=== PATIENT | female | born 1960 | race Caucasian/White ===

== ENCOUNTER 2016-10-19 02:57 | Emergency (ER) | payer OTHER ==
[~2016-10-19] VITALS: Ht 162.6 cm; Wt 89.8 kg
[~2016-10-19 02:57] MED LIST: AMBIEN5 M1 PO; CARAFATE1 G1 PO; PRILOSEC OTC20 M1 PO; PRILOSEC20 M1 PO
--- NOTE | 2016-10-19 03:06 | ED GENERAL ADULT ---
History of Present Illness General Chief Complaint: General Adult Stated Complaint: " I THINK I HAVE THE FLU,I KNOW MY BODY" PER PT Source: patient, old records Exam Limitations: no limitations Vital Signs & Intake/Output Vital Signs & Intake/Output Vital Signs Date Time Temp Pulse Resp B/P B/P Pulse O2 O2 Flow FiO2 Mean Ox Delivery Rate 10/192 96.8 88 18 184/72 98 Room Air 10/19 0434 98.2 10/19 0429 98.2 10/19 0315 96 Room Air 10/19 0302 100.2 116 20 193/111 96 Room Air Allergies Coded Allergies: erythromycin base (Severe, TONGUE SWELLING 09/21/15) Reconcile Medications Omeprazole (Prilosec) 20 MG CAPSULE.DR 1 CAP PO DAILY GASTRITIS Omeprazole Magnesium (Prilosec Otc) 20 MG TABLET.DR 1 TAB PO DAILY gastritis Ondansetron (Zofran Odt) 4 MG TAB.RAPDIS 1 TAB SL TID PRN NAUSEA P-Ephed HCl/Hydrocodone (Rezira Solution) 60 MG-5 MG/5 ML SOLUTION 5 ML PO Q6P PRN COUGH Sucralfate (Carafate) 1 GM TABLET 1 TAB PO 4 TIMES/DAY GASTRITIS Zolpidem Tartrate (Ambien) 5 MG TABLET 1 TAB PO QPMP PRN insomnia five tabs...[id number] Triage Nurses Notes Reviewed? yes HPI: Patient presents with fevers chills myalgias and nausea and vomiting since yesterday. Patient states she is unable to keep anything down. There is no diarrhea. There is no abdominal pain however she does have diffuse myalgias. There is no radiation of the myalgias. The myalgias are constant. There are no aggravating or mitigating factors. She rates the myalgias at 6 out of 10. Past History Medical History Any Pertinent Medical History? 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 No Review of Systems Review of Systems Constitutional: Reports: see HPI, chills, fever. EENTM: Reports: no symptoms. Respiratory: Reports: no symptoms. Cardiovascular: Reports: no symptoms. GI: Reports: see HPI, nausea, vomiting. Genitourinary: Reports: no symptoms. Musculoskeletal: Reports: see HPI, muscle pain. Skin: Reports: no symptoms. Neurological/Psychological: Reports: no symptoms. Hematologic/Endocrine: Reports: no symptoms. Immunologic/Allergic: Reports: no symptoms. All Other Systems: Reviewed and Negative Physical Exam Physical Exam General Appearance: well developed/nourished, alert, awake, anxious, moderate distress Head: atraumatic, normal appearance Eyes: Bilateral: PERRL, EOMI. Ears, Nose, Throat: normal pharynx, DRY MUCOSA Neck: normal inspection, supple, full range of motion Respiratory: normal breath sounds, chest non-tender, no respiratory distress, lungs clear Cardiovascular: regular rate/rhythm, normal peripheral pulses Gastrointestinal: normal bowel sounds, soft, non-tender, no organomegaly Back: normal inspection Extremities: normal inspection, normal capillary refill, normal range of motion, no edema Neurologic/Psych: no motor/sensory deficits, awake, alert, oriented x 3, normal gait, normal mood/affect Skin: intact, normal color, warm/dry Lymphatic: no anterior cervical echo Core Measures ACS in differential dx? No CVA/TIA Diagnosis: No Severe Sepsis Present: No Septic Shock Present: No Progress Differential Diagnoses I considered the following diagnoses in my evaluation of the patient: [VIRAL SYNDROME, UTI, ELECTROLYTE ABNORMALITY] Plan of Care: Orders Procedure Date/time Status URINALYSIS 10/19 030 Active LIPASE 10/19 030 Complete COMPREHENSIVE METABOLIC PANEL 10/19 030 Complete CBC WITHOUT DIFFERENTIAL 10/19 030 Complete AMYLASE 10/19 030 Complete Current Medications Sig/Rodrigo Start time Last Medication Dose Stop Time Status Admin Acetaminophen 1,000 MG ONCE ONE 10/19 314 UNVr 10/19 (Ofirmev) 10/19 032 0310 N/A 1 UNIT (No Carrier) Ondansetron HCl 4 MG ONCE ONE 10/19 314 UNVr 10/19 (Zofran) 10/19 0316 0310 Sodium Chloride 1,000 ML BOLUS ONE 10/19 314 UNVr 10/19 (Normal Saline 0.9%) 05/31 0414 0323 Sodium Chloride 1,000 ML BOLUS ONE 10/19 314 UNVr 10/19 (Normal Saline 0.9%) 10/19 Laboratory Tests 10/19/16309: Anion Gap 11, Estimated GFR > 60, BUN/Creatinine Ratio 16.7, Glucose 125 H, Calcium 8.8, Total Bilirubin 0.6, AST 23, ALT 36, Alkaline Phosphatase 84, Total Protein 7.0, Albumin 4.1, Globulin 2.9, Albumin/Globulin Ratio 1.4, Amylase 56, Lipase 73, CBC w Diff NO MAN DIFF REQ, RBC 5.20, MCV 82.4, MCH 27.0, RDW 14.1, MPV 7.9, Gran % 90.9 H, Lymphocytes % 6.1 L, Monocytes % 2.8, Eosinophils % 0.2, Basophils % 0 L, Absolute Granulocytes 12.5 H, Absolute Lymphocytes 0.8 L, Absolute Monocytes 0.4, Absolute Eosinophils 0, Absolute Basophils 0, PUBS MCHC 32.7 L Initial ED EKG: none Comments: Patient is feeling much better. Patient wishes to go home. Patient is asking for cough syrup with hydrocodone. Patient is now having a nonproductive cough and sinus congestion. There is no sinus headache. There is no tenderness over the sinuses. Her lungs are clear to auscultation bilaterally. Departure Departure Disposition: HOME OR SELF CARE Condition: Stable Clinical Impression Primary Impression: Viral syndrome Referrals: RAYMUNDO LUIS APRN (PCP/Family) Additional Instructions: drink plenty of fluids return for any concerns Departure Forms: Customer Survey General Discharge Information Prescriptions: Current Visit Scripts Ondansetron (Zofran Odt) 1 TAB SL TID PRN NAUSEA #10 TAB P-Ephed HCl/Hydrocodone (Rezira Solution) 5 ML PO Q6P PRN COUGH #240 ML Critical Care Note Critical Care Note Critical Care Time: non-applicable
[2016-10-19 03:18] LABS: ABSOLUTE BASOPHIL COUNT 0 /CUMM (0.0-0.2); ABSOLUTE EOSINOPHIL COUNT 0 /CUMM (0.0-0.7); ABSOLUTE GRANULOCYTE CT 12.5 /CUMM (1.4-6.5); ABSOLUTE LYMPH COUNT 0.8 /CUMM (1.2-3.4); ABSOLUTE MONOCYTE COUNT 0.4 /CUMM (0.10-0.60); BASOPHIL % 0 % (0.0-2.0); EOSINOPHIL % 0.2 % (0-5); GRANULOCYTE % 90.9 % (42.2-75.2); HEMATOCRIT 42.9 % (37-47); MEAN CORPUSCULAR HGB CONC 32.7 G/DL (33.0-37.0); MEAN CORPUSCULAR VOLUME 82.4 FL (81.0-99.0); MEAN PLATELET VOLUME 7.9 FL (7.4-10.4); PLATELET COUNT 288 /CUMM (130-400); RBC DISTRIBUTION WIDTH 14.1 % (11.5-14.5); WHITE BLOOD CELL COUNT 13.8 /CUMM (4.8-10.8)
[2016-10-19] MEDS ORDERED: ZOFRAN ODT4 M1 SL (04:41)
[2016-10-19] MEDS ORDERED: [UNRECOGNIZED DRUG - OTHER] PO (04:41)
[2016-10-19 04:42] VITALS: BP 184/72
[2016-10-19] MEDS ORDERED: HYCOFENIX 2.5-473 ML PO (05:02)
== END 2016-10-19 04:48 ==
LOC: ERH 02:57
PROVIDERS: Emergency Medicine
DX: B34.9 Viral infection, unspecified (principal); M79.1 Myalgia; R11.2 Nausea with vomiting, unspecified
CPT/HCPCS: 96361; 96374; 99291; J0131; J2405

== ENCOUNTER 2017-05-24 14:57 | Emergency (ER) | payer OTHER ==
[~2017-05-24] VITALS: Ht 162.6 cm; Wt 90.7 kg
[~2017-05-24 14:57] MED LIST changes: +HYCOFENIX 2.5-473 ML PO; +ZOFRAN ODT4 M1 SL; +[UNRECOGNIZED DRUG - OTHER] PO
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
[2017-05-24] MEDS ORDERED: ADVIL200 M2 PO (17:58)
--- NOTE | 2017-05-24 18:54 | CT SCAN REPORT ---
EXAMINATIONS: CT HEAD WITHOUT CONTRAST AND CT CERVICAL SPINE WITHOUT CONTRAST CLINICAL INFORMATION: Blurred vision. Headache. Injury. COMPARISON: 05/19/2008. TECHNIQUE: Contiguous helical images of the brain were obtained without IV contrast. Contiguous helical images of the cervical spine were obtained without IV contrast. Multiplanar reconstructions were performed. DLP: 883 mGy-cm. FINDINGS: There are no pathologic extra-axial fluid collections. The lateral, third, fourth ventricles are nondilated and concordant with the appearance of the sulci. There is no evidence for acute intraparenchymal hemorrhage or infarct. There is neither mass nor mass effect. There is no shift of midline structures. The paranasal sinuses and mastoid air cells are clear. There are no osseous lesions. The cervical vertebra are in normal alignment. There is disc height loss at C5/C6 with mild anterior osteophyte formation. Disc heights and vertebral heights are otherwise well-preserved. There are no fractures. There is no prevertebral soft tissue swelling. There is no cervical lymphadenopathy. The visualized lung apices are clear. IMPRESSION: No evidence for acute intracranial injury. No evidence for acute injury to the cervical spine. Mild degenerative change within the cervical spine.
[2017-05-24] MEDS ORDERED: ESGIC 50-325-41 EACH PO (19:08)
[2017-05-24 19:16] VITALS: BP 168/96
== END 2017-05-24 19:32 ==
LOC: ERH 14:57
DX: F07.81 Postconcussional syndrome (principal); R03.0 Elevated blood-pressure reading, without diagnosis of hypertension